=== PATIENT | female | born 1995 | race Caucasian/White ===

== ENCOUNTER 2019-10-18 22:54 | Emergency (ER) | payer OTHER ==
--- NOTE | 2019-10-19 01:33 | ED Physician Documentation ---
History of Present Illness - Stated complaint Stated Complaint: LRQ ABD PX/NAUSEA - Chief complaint Chief Complaint: Abd Pain - Additonal information Additional information: This is a 24-year-old female who presents with right lower quadrant discomfort for 10 months. Patient states that she gets intermittent cramping type abdominal pain in her right lower quadrant. She has been seen for this pain multiple times and has had 2 abdominal ultrasounds performed as well as a transvaginal ultrasound. 1 of these showed a possible hemorrhagic cyst, the others have been unremarkable. She has had multiple rounds of blood work which have been unrevealing. She denies concern for sexually transmitted infection, denies abnormal vaginal bleeding or discharge, no dysuria. She has had negative STI screens and normal pelvic exams during her past work ups. Patient states that the pain has come back over the last day or 2 so she decided to be re- evaluated. No vomiting, no diarrhea. Review of Systems Constitutional: denies: Fever Nose: denies: Rhinorrhea / runny nose GI: reports: Abdominal Pain : denies: Dysuria Neurologic: denies: Generalized weakness Immunocompromised: denies: Immunocompromised PD PAST MEDICAL HISTORY - Past Medical History Past Medical History: Yes Cardiovascular: None Respiratory: None Neuro: None Endocrine/Autoimmune: None GI: None PHOTOGEOLOGIST: None : None HEENT: None Psych: None Musculoskeletal: None Derm: None - Past Surgical History Past Surgical History: No - Present Medications Home Medications: Ambulatory Orders Medication Instructions Recorded Confirmed No Known Home Medications 10/18/19 10/18/19 - Allergies Allergies/Adverse Reactions: Allergies Allergy/AdvReac Type Severity Reaction Status Date / Time No Known Drug Allergies Allergy Verified 10/18/19 23:06 - Social History Does the pt smoke?: No Smoking Status: Never smoker Does the pt drink ETOH?: Yes Does the pt have substance abuse?: No - Immunizations Immunizations are current?: Yes - POLST Patient has POLST: No PD ED PE NORMAL - Vitals Vital signs reviewed: Yes - General General: Alert and oriented X 3, No acute distress - HEENT HEENT: PERRL - Neck Neck: Supple, no meningeal sign - Cardiac Cardiac: RRR, No murmur - Respiratory Respiratory: No respiratory distress, Clear bilaterally - Abdomen Abdomen: Normal bowel sounds, Soft, Non distended, Other (Very mild tenderness in the right lower quadrant, no guarding. Remainder of abdomen is completely nontender.) - Derm Derm: Warm and dry - Extremities Extremities: No deformity - Neuro Neuro: Alert and oriented X 3 - Psych Psych: Normal mood, Normal affect Results - Vitals Vitals: Vital Signs - 24 hr 10/18/19 10/19/19 23:00 02:35 Temperature 37.1 C 36.8 C Heart Rate 90 74 Respiratory 16 16 Rate Blood Pressure 126/81 H 109/69 O2 Saturation 96 99 Oxygen O2 Source Room air - Labs Labs: Laboratory Tests 10/19/19 10/19/19 10/19/19 02:00 02:00 02:01 WBC 8.9 RBC 4.38 Hgb 13.3 Hct 39.5 MCV 90.2 MCH 30.4 MCHC 33.7 RDW 11.9 L Plt Count 308 MPV 9.2 Neut # (Auto) 6.0 Lymph # (Auto) 2.3 [place] # (Auto) 0.5 Eos # (Auto) 0.1 Baso # (Auto) 0.1 Absolute Nucleated RBC 0.00 Nucleated RBC % 0.0 Sodium 143 Potassium 3.8 Chloride 107 Carbon Dioxide 27 Anion Gap 9.0 BUN 10 Creatinine 0.8 Estimated GFR (MDRD) 89 Glucose 91 Calcium 9.4 Total Bilirubin 0.5 AST 17 ALT 10 Alkaline Phosphatase 57 Total Protein 7.4 Albumin 4.4 Globulin 3.0 Albumin/Globulin Ratio 1.5 Lipase 40 Urine Color YELLOW Urine Clarity CLEAR Urine pH 7.5 Ur Specific [place] 1.010 Urine Protein NEGATIVE Urine Glucose (UA) NEGATIVE Urine Ketones NEGATIVE Urine Occult Blood TRACE-LYSE Urine Nitrite NEGATIVE Urine Bilirubin NEGATIVE Urine Urobilinogen 0.2 (NORMAL) Ur Leukocyte Esterase SMALL H Urine RBC 0-5 Urine WBC 0-3 Ur Squamous Epith Cells MOD Squamous H Urine Bacteria Few Ur Microscopic Review INDICATED Urine HCG, Qual NEGATIVE PD MEDICAL DECISION MAKING - ED course Complexity details: considered differential (Ovarian cyst, ovarian torsion, appendicitis, enteritis, musculoskeletal pain, UTI, STI) ED course: Patient presents with intermittent right lower quadrant abdominal pain for 10 months, she has been worked up as an outpatient several times for this and it has been unrevealing. Her work-up has included negative pelvic exams, STI screenings, urinalyses, multiple abdominal and pelvic ultrasounds. I discussed with her that we were unlikely to find an emergent cause of her chronic abdominal pain today given the extent of her past work-ups and her well appearance today, combined with her very benign abdominal exam. labs obtained today are unremarkable. Urinalysis is negative for infection, hCG is negative. Given these results and her physical exam, I highly doubt acute abdominal pathology, and given the chronicity of her symptoms appendicitis is highly unlikely. I do not feel that imaging is indicated today. I reviewed return precautions with the patient, and emphasized the importance of follow-up with her primary care provider. Patient agrees with this plan and was discharged home Departure - Departure Disposition: 01 Home, Self Care Clinical Impression: Abdominal pain Qualifiers: Abdominal location: unspecified location Qualified Code(s): R10.9 - Unspecified abdominal pain Condition: Good Instructions: ED Abdominal Pain Unkn Cause Follow-Up: JADE MORALES III, MD [Primary Care Provider] - Within 1 week Comments: Your labs and urine test do not show an obvious emergent cause of your abdominal pain today. Please follow-up with your primary care provider to discuss your abdominal pain and further work-up. If you are having significantly worsening pain, persistent vomiting, or other new concerning symptoms please return to the emergency department Discharge Date/Time: 10/19/19 03:04
[2019-10-19 02:03] LABS: BASOPHILS # (AUTO) 0.1 10^3/uL (0.0-0.1); BASOPHILS % (AUTO) 0.6 %; EOSINOPHILS # (AUTO) 0.1 10^3/uL (0.0-0.7); EOSINOPHILS % (AUTO) 1.2 %; HGB - HEMOGLOBIN 13.3 g/dL (12.0-16.0); LYMPHOCYTES # (AUTO) 2.3 10^3/uL (1.5-3.5); LYMPHOCYTES % (AUTO) 25.4 %; MEAN CORPUSCULAR HEMOGLOBIN 30.4 pg (27.0-31.0); MEAN CORPUSCULAR HGB CONC 33.7 g/dL (32.0-36.0); MEAN CORPUSCULAR VOLUME 90.2 fL (81.0-99.0); MEAN PLATELET VOLUME 9.2 fL (7.9-10.8); MONOCYTES # (AUTO) 0.5 10^3/uL (0.0-1.0); MONOCYTES % (AUTO) 5.2 %; NEUTROPHILS % (AUTO) 67.3 %; PLT - PLATELET COUNT 308 10^3/uL (130-450); RED BLOOD COUNT 4.38 10^6/uL (4.20-5.40); RED CELL DISTRIBUTION WIDTH 11.9 % (12.0-15.0); WHITE BLOOD COUNT 8.9 x10^3/uL (4.8-10.8)
[2019-10-19 02:16] LABS: ALBUMIN 4.4 g/dL (3.2-5.5); ALBUMIN/GLOBULIN RATIO 1.5 (1.0-2.2); BILIRUBIN,TOTAL 0.5 mg/dL (0.2-1.0); CALCIUM 9.4 mg/dL (8.5-10.3); CREATININE 0.8 mg/dL (0.4-1.0); TOTAL PROTEIN 7.4 g/dL (6.7-8.2)
[2019-10-19 02:24] LABS: BILIRUBIN,URINE NEGATIVE (NEGATIVE); GLUCOSE, URINE (UA) NEGATIVE (NEGATIVE); KETONES,URINE (UA) NEGATIVE (NEGATIVE); LEUKOCYTE ESTERASE, URINE SMALL (NEGATIVE); NITRITE,URINE NEGATIVE (NEGATIVE); OCCULT BLOOD,URINE TRACE-LYSE (NEGATIVE); PH,URINE 7.5 PH (5.0-7.5); PROTEIN,URINE NEGATIVE (NEGATIVE); UROBILINOGEN,URINE 0.2 (NORMAL) E.U./dL (NORMAL)
[2019-10-19 02:31] LABS: BACTERIA,URINE Few /HPF (None Seen); CLARITY,URINE CLEAR (CLEAR); HCG UR QUAL NEGATIVE; RBC,URINE 0-5 /HPF (0-5); SQUAMOUS EPITHELIAL CELL,UR MOD Squamous (<= Few)
[2019-10-19 02:37] VITALS: BP 109/69
== END 2019-10-19 03:04 | disposition home or self-care (01) ==
LOC: ED 22:54
DX: R10.31 Right lower quadrant pain (principal); G89.29 Other chronic pain
CPT/HCPCS: 36415; 80053; 81001; 81003; 81025; 83690; 85025; 99283

== ENCOUNTER 2021-09-07 06:08 | Day surgery (SDC) | payer OTHER ==
[2021-09-07] MEDS ORDERED: LACTATED RINGERS 1,000 ML IV ONE ×2 (06:13→09:02)
[2021-09-07] MEDS ORDERED: CEFAZOLIN SODIUM IN 0.9 % NACL 2 GM/100 ML BAG IV ONE (06:18)
[2021-09-07 06:31] LABS: HCG UR QUAL NEGATIVE
[2021-09-07] MEDS ORDERED: fentaNYL 100 MCG/2 ML VIAL ONE (06:58)
[2021-09-07] MEDS ORDERED: MIDAZOLAM 2 MG/2 ML VIAL ONE (06:58)
[2021-09-07] MEDS ORDERED: PROPOFOL 200 MG/20 ML VIAL IVP ONE ×2 (06:58→08:15)
[2021-09-07] MEDS ORDERED: LIDOCAINE-MPF 2% 5 ML VIAL ONE (06:58)
[2021-09-07] MEDS ORDERED: ePHEDrine 50 MG/ML VIAL IVP PRN (07:06)
[2021-09-07] MEDS ORDERED: ONDANSETRON 4 MG/2 ML VIAL IVP PRN (07:06)
[2021-09-07] MEDS ORDERED: ATROPINE ABBOJECT 1 MG/10 ML SYRINGE IVP PRN (07:06)
[2021-09-07] MEDS ORDERED: MORPHINE 2 MG/ML CARPUJECT IVP PRN (07:06)
[2021-09-07] MEDS ORDERED: fentaNYL 100 MCG/2 ML VIAL IVP PRN (07:06)
[2021-09-07] MEDS ORDERED: HYDROmorphone 0.5 MG/0.5 ML SYRINGE IVP PRN (07:06)
[2021-09-07] MEDS ORDERED: NALOXONE 0.4 MG/ML VIAL IVP PRN (07:06)
[2021-09-07] MEDS ORDERED: METOCLOPRAMIDE 10 MG/2 ML VIAL IVP PRN (07:06)
--- NOTE | 2021-09-07 07:06 | ANESTHESIA ---
Pre-Anesthesia VS, & Labs - Diagnosis left breast mass - Procedure Excision of left breast mass Vital Signs: Temp Pulse Resp BP Pulse Ox 36.8 C 90 16 130/82 H 100 09/07/21 06:27 09/07/21 06:27 09/07/21 06:27 09/07/21 06:27 09/07/21 06:27 Height: 5 ft 4 in Weight (kg): 52.1 kg Body Mass Index: 19.7 BMI Classification: Healthy weight - NPO >8 hours - Is Patient ?: No - Lab Results Lab results reviewed: Yes Home Medications and Allergies Home Medications: Ambulatory Orders Naproxen 250 mg PO PRN PRN 08/28/21 Naproxen 250 mg PO PRN PRN 08/28/21 Allergies/Adverse Reactions: Allergies Allergy/AdvReac Type Severity Reaction Status Date / Time No Known Drug Allergies Allergy Verified 09/04/21 13:19 Anes History & Medical History - Anesthetic History Anesthesia Complications: reports: No previous complications Family history of Anesthesia Complications: Denies Family history of Malignant Hyperthermia: Denies - Medical History Cardiovascular: reports: None Pulmonary: reports: None Gastrointestinal: reports: None Urinary: reports: None Neuro: reports: None Musculoskeletal: reports: None Endocrine/Autoimmune: reports: None Blood Disorders: reports: None Skin: reports: None Smoking Status: Never smoker Exam General: Alert, Oriented x3, Cooperative, No acute distress Dental: WNL Mouth Openin Fingerbreadth Neck Mobility: Normal Mallampati classification: I Respiratory: Lungs clear, Normal breath sounds, No respiratory distress, No accessory muscle use Cardiovascular: Regular rate, Normal S1, Normal S2, No murmurs Plan Anesthesia Type: General Consent for Procedure(s) Verified and Reviewed: Yes Code Status: Attempt Resuscitation ASA classification: 1-Healthy patient Is this case an emergency?: No
[2021-09-07] MEDS ORDERED: BUPIVACAINE 0.5% PF 30 ML VIAL SUBQ ONE ×2 (07:15)
[2021-09-07] MEDS ORDERED: BUPIVACAINE 0.5% PF 10 ML VIAL ONE (07:25)
[2021-09-07] MEDS ORDERED: DEXAMETHASONE 4 MG/ML VIAL ONE (08:00)
[2021-09-07] MEDS ORDERED: ONDANSETRON 4 MG/2 ML VIAL ONE (08:00)
[2021-09-07] MEDS ORDERED: LACTATED RINGERS 1,000 ML IV SCH (08:00)
--- NOTE | 2021-09-07 08:45 | OPERATIVE REPORT ---
Operative Report - General Procedure Date: 09/07/21 Planned Procedure: LEFT excisional breast biopsy Pre-Op Diagnosis: Left breast mass (favor fibroadenoma) Procedure Performed: LEFT excisional breast biopsy Post Op Diagnosis: Same - Procedure Note Primary Surgeon: Ruben Sher MD Anesthesia Provider: Josiah Rutherford CRNA Anesthesia Technique: General LMA, Local (30 mL of half percent Marcaine) IV Fluids (mL): 500 Estimated Blood Loss (mL): 2 Drain/Tube Type: Other (None.) Indications: LEFT symptomatic breast mass Complications: None. - Other Other Information/Narrative: After verbal and written informed consent was obtained detailing the operation, the alternatives the operation including no operation, risks of infection, bleeding requiring transfusion with its risks, nerve injury, and and after I met with the patient confirming the surgery and the site of surgery, the patient was brought to the operative suite and placed supine on the operating table. Great care was taken to avoid pressure points to prevent pressure necrosis or nerve injury. Monitoring devices were applied along with TEDs and pneumatic compression stockings (to prevent DVT). The patient received preoperative antibiotics for surgical prophylaxis. Josiah Rutherford CRNA sedated and anesthetized the patient for the entire procedure. The patient was prepped and draped in the usual sterile manner. With the patient draped my initials were clearly visible. A "time in" then confirmed that the patient was identified with 3 identifiers (name, date, and medical record number), the history and physical was updated and in the chart, the signed consent confirming the procedure was in the chart, the patient was in the correct position, the aforementioned prophylactic measures were in place or given, we had the correct personnel and equipment to complete the procedure and that anesthesia and the surgical team were given an opportunity to express any concerns. With the agreement of everyone in the room we proceeded with the operation. After injecting the overlying skin with half percent Marcaine, a curvilinear incision was made at the areolar skin border. Dissection down to the mass was completed using a combination of blunt dissection as well as Bovie electrocautery. The mass was considerably larger than the incision so extensive dissection was done to free it from its surrounding tissues and then it was expressed out of the incision. In removing the mass through this much smaller incision the mass itself broke up a bit but mostly stayed intact. It was not labeled for orientation because this was most likely a fibroadenoma and considering the patient's extremely small breast size obtaining margins was not a concern. Hemostasis was obtained using Bovie electrocautery. The subcutaneous tissues were approximated using interrupted 3-0 Vicryl sutures. The skin incision was approximated with 4-0 Monocryl in a subcuticular fashion. The skin was cleaned of its prep and Dermabond was applied. At this point a timeout was performed that confirmed that all counts were correct x2, the procedure that was performed, the blood loss, the IV fluids administered, the patient's condition, and any concerns of the operating team had. Having tolerated the procedure well, the patient was taken recovery room in good and stable condition. The plan is for outpatient discharge when the patient is adequately recovered. This document was created in part using voice recognition technology. Because of the inherent limitations of the system, occasional same sounding word substitutions and grammatical errors do occur and persist despite proofreading. Please read this document for content.
--- NOTE | 2021-09-07 09:11 | ANESTHESIA POST OP EVALUATION ---
Anesthesia Post Eval - Post Anesthesia Eval Vitals: Last Vital Signs Temp 36.6 C 09/07/21 09:01 Pulse 73 09/07/21 09:01 Resp 14 09/07/21 09:01 BP 117/82 H 09/07/21 09:01 Pulse Ox 100 09/07/21 09:01 CV Function Including HR & BP: Stable Pain Control: Satisfactory Nausea & Vomiting: Negative Mental Status: Baseline Respiratory Status: Airway Patent Hydration Status: Satisfactory Anesthesia Complications: None
[2021-09-07 09:27] VITALS: BP 122/95
== END 2021-09-07 06:09 | disposition home or self-care (01) ==
LOC: SDS 06:08
PROVIDERS: ATTEND Surgery
PROC: 0HBU0ZX Excision of Left Breast, Open Approach, Diagnostic (ICD-10-PCS; principal; 2021-09-07 07:30)
DX: N63.25 Unspecified lump in the left breast, overlapping quadrants (principal)
CPT/HCPCS: 19120; 81025; J0690; J7120